=== PATIENT | female | born 1975 | race American Indian/Alaskan Native ===

== ENCOUNTER 2018-04-25 14:00 | Emergency (ER) | payer BC, OTHER ==
[2018-04-25 14:01] VITALS: BMI 31.5
[2018-04-25] MEDS ORDERED: Sodium Chloride 0.9% 500 ML IV ONE ×2 (14:40→18:10)
--- NOTE | 2018-04-25 15:00 | C.PDOC ---
History Of Present Illness 42 y/o female, , 5.5 weeks gestation, with PMHx of HTN, diabetes, PCOS, right side ovarian torsion, presents to ED for evaluation of abdominal cramping for the last few days. She reports being seen by her OBGYN in [place] and states her Beta-HCG is "not increasing as normal". Last Beta level was 106. Notes her OBGYN instructed her to report to ED for further evaluation. Otherwise , denies vaginal bleeding, vaginal discharge, or fever. Time Seen by Provider: 04/25/18 14:34 Chief Complaint (Nursing): Medical Clearance History Per: Patient History/Exam Limitations: no limitations Past Medical History Reviewed: Historical Data, Nursing Documentation, Vital Signs Vital Signs: Last Vital Signs Temp 99.0 F 04/25/18 18:15 Pulse 105 H 04/25/18 18:15 Resp 18 04/25/18 18:15 BP 129/86 04/25/18 18:15 Pulse Ox 98 04/25/18 18:15 - Medical History PMH: HTN, Sleep Apnea (On Cpap at HS) Denies: Chronic Kidney Disease Surgical History: Endoscopy - [facility] Procedures LAPAROSCOP LYSIS-PERITONEAL ADHES (06/23/14) LAPAROSCOPY (06/23/14) PARTIAL SALPINGECTOM NEC (06/23/14) Family History: States: Unknown Family Hx - Social History Hx Alcohol Use: Yes Hx Substance Use: No - Immunization History Hx Tetanus Toxoid Vaccination: No Hx Influenza Vaccination: No Hx Pneumococcal Vaccination: No Review Of Systems Except As Marked, All Systems Reviewed And Found Negative. Constitutional: Negative for: Fever, Chills Gastrointestinal: Positive for: Abdominal Pain. Negative for: Nausea, Vomiting , Diarrhea Genitourinary: Negative for: Dysuria, Hematuria, Vaginal Discharge, Vaginal Bleeding Musculoskeletal: Negative for: Back Pain Physical Exam - Physical Exam Appears: Non-toxic, No Acute Distress Skin: Normal Color, Warm, Dry Head: Atraumatic, Normacephalic Eye(s): bilateral: Normal Inspection Oral Mucosa: Moist Cardiovascular: Rhythm Regular Respiratory: Normal Breath Sounds, No Rales, No Rhonchi, No Wheezing Gastrointestinal/Abdominal: Soft, Tenderness (mild suprapubic), No Guarding, No Rebound Back: No CVA Tenderness Extremity: Normal ROM Neurological/Psych: Oriented x3, Normal Speech ED Course And Treatment - Laboratory Results Result Diagrams: 04/25/18 15:24 04/25/18 15:24 O2 Sat by Pulse Oximetry: 99 (RA) Pulse Ox Interpretation: Normal Medical Decision Making Medical Decision Making: ro ectopic vs miscarriage. Plan: Blood work Urinalysis Transvaginal ultrasound IV fluids Pt refused pain medications. case discussed wtih dr kaur, who eval case bedside methotrexate given. abd soft no ttp. vitals stable. pt notified to f/u with obgyn in 4 days or return to er for repeat beta in 4 days. return immediately with any worsening. Disposition - Disposition Disposition: HOME/ ROUTINE Disposition Time: 06:00 Condition: STABLE Additional Instructions: return to er in 4 days or follow up with your doctor for repeat beta hcg level. you must follow up . return immediately with worsening symptoms or concerns. Instructions: Ectopic Forms: [facility] (Chinese) - Clinical Impression Clinical Impression: Ectopic - Scribe Statement The provider has reviewed the documentation as recorded by the Scribe KP All medical record entries made by the Scribe were at my direction and personally dictated by me. I have reviewed the chart and agree that the record accurately reflects my personal performance of the history, physical exam, medical decision making, and the department course for this patient. I have also personally directed, reviewed, and agree with the discharge instructions and disposition.
[2018-04-25 15:31] LABS: BASO # 0.1 K/uL (0.0-0.2); EOS # 0.1 K/uL (0.0-0.7); EOS % 1.1 % (0.0-4.0); HEMOGLOBIN 13.3 g/dL (11.0-16.0); LYMPH # 2.3 K/uL (1.0-4.3); LYMPH % 28.7 % (20.0-40.0); MEAN CELL VOLUME 72.3 fL (81.0-99.0); MEAN CORPUSCULAR HEMOGLOBIN 23.2 pg (27.0-31.0); MEAN PLATELET VOLUME 8.5 fL (7.2-11.7); MONO # 0.5 K/uL (0.0-0.8); MONO % 6.8 % (0.0-10.0); NEUT # 4.9 K/uL (1.8-7.0); NEUT % 62.4 % (50.0-75.0); NRBC % 0.2 % (0.0-2.0); RBC 5.73 Mil/uL (3.80-5.20); WHITE BLOOD COUNT 7.9 K/uL (4.8-10.8)
[2018-04-25 15:40] LABS: PROTHROMBIN TIME 10.8 SECONDS (9.7-12.2)
[2018-04-25 15:49] LABS: ALB/GLOB RATIO 1.5 (1.0-2.1); ALBUMIN 4.2 g/dL (3.5-5.0); ALT/SGPT 16 U/L (9-52); AST/SGOT 16 U/L (14-36); BLOOD UREA NITROGEN 11 mg/dL (7-17); CALCIUM 9.8 mg/dl (8.6-10.4); GFR NON-AFRICAN AMERICAN > 60
--- NOTE | 2018-04-25 16:44 | US ---
Date of service: 04/25/2018 PROCEDURE: Pelvic ultrasound HISTORY: Abd pain and COMPARISON: No prior study available for comparison TECHNIQUE: Transabdominal/transvaginal sonographic evaluation of the pelvis performed. FINDINGS: The uterus is anteverted measuring approximately 7.8 x 4.6 x 6.0 cm. Endometrial stripe measures approximately 1.1 cm. . No evidence of intrauterine gestation. The right ovary measures 2.9 x 1.6 x 3.1 cm. Right ovary exhibits arterial flow. Left ovary measures 8.2 x 5.4 x 8.6 cm. There 2 left-sided cysts of the 1st measuring 4.4 x 3.9 x 3.9 cm and the 2nd measuring approximately 1 cm greatest dimension. There is an additional cystic-appearing structure that measures approximately 3.2 x 2.0 x 3.4 cm and also exhibits peripheral flow. . This should be considered an ectopic if there is a positive serum beta HCG until proven otherwise. Note these findings were discussed with doctor Rouse at approximately 4:30 p.m. with written down and read back verification. IMPRESSION: No evidence of intrauterine gestation. There is a somewhat cystic appearing structure that measures approximately 3.2 x 2.0 x 3.4 cm and exhibits a somewhat thicker on periphery that exhibits arterial flow. Of this should be considered ectopic if there is a positive serum beta HCG until proven otherwise. Note that these findings were discussed with referring emergency room attending physician as detailed above. The small amount of free fluid is present.
[2018-04-25 17:27] LABS: SQUAMOUS EPITHIAL 1 /hpf (0-5); URINE BACTERIA RARE (<OCC); URINE BILIRUBIN NEGATIVE (NEGATIVE); URINE BLOOD 1+ (NEGATIVE); URINE CLARITY Clear (Clear); URINE COLOR Yellow (YELLOW); URINE GLUCOSE (UA) NORMAL (Normal); URINE LEUKOCYTE ESTERASE TRACE Leu/uL (Negative); URINE PROTEIN NEGATIVE (NEGATIVE); URINE UROBILINOGEN NORMAL mg/dL (0.2-1.0)
[2018-04-25 17:30] LABS: HCG,QUALITATIVE URINE POSITIVE (NEGATIVE)
[2018-04-25] MEDS ORDERED: Methotrexate 50 mg/2 ml Inj IM ONE ×2 (18:02→18:15)
[2018-04-25 18:16] VITALS: BP 129/86; PULSE 105; RESP 18; TEMP 99
--- NOTE | 2018-04-25 19:11 | CP.PCM.CON ---
History of Present Illness - History of Present Illness History of Present Illness: 42 yo female G1, 5.5 weeks gestation. Presented to ER with c/o of mild pelvic pain intermittent and for the past few days. She reports being seen by her OBGYN in [place], where she used to live, and was told that her BHCG was not "increasing as normal" and she was instraucted to go to ER for further evaluation. Report mild vaginal bleeding and spotting but denies vaginal discharge or fever. Pt brought Bhcg reports from [place] and on 04/19 it was 81 and on 04/21, it was 106.7 Review of Systems - Reproductive: Female Reproductive:Female: As Per HPI (Hx of PCO's and infertility. Scheduled for IVF in June/2018) - Menstruation Menstruation: Normal Menses (Admits to regular menses for the past 2-3 years with normal flow) Past Patient History - Past Medical History & Family History Past Medical History?: Yes - Past Social History Smoking Status: Never Smoked Alcohol: Social Drugs: Denies Domestic Violence: Negative - CARDIAC Hx Hypertension: Yes - PULMONARY Hx Sleep Apnea: Yes (On Cpap at ) - NEUROLOGICAL Hx Neurological Disorder: No - HEENT Hx HEENT Problems: No - RENAL Hx Chronic Kidney Disease: No - ENDOCRINE/METABOLIC Hx Endocrine Disorders: Yes Hx Diabetes Mellitus Type 2: Yes - HEMATOLOGICAL/ONCOLOGICAL Hx Blood Disorders: No - INTEGUMENTARY Hx Dermatological Problems: No - MUSCULOSKELETAL/RHEUMATOLOGICAL Hx Musculoskeletal Disorders: No - GASTROINTESTINAL Hx Gastrointestinal Disorders: No - GENITOURINARY/GYNECOLOGICAL Hx Genitourinary Disorders: No - PSYCHIATRIC Hx Substance Use: No - SURGICAL HISTORY Hx Surgeries: Yes (Laparoscopic Right Salpingectomy and FREYA) Other/Comment: Torsion ovary; removed right folopian tube. [place] tooth - ANESTHESIA Hx Anesthesia: Yes Hx Anesthesia Reactions: No Hx Malignant Hyperthermia: No Meds Allergies/Adverse Reactions: Allergies Allergy/AdvReac Type Severity Reaction Status Date / Time No Known Allergies Allergy Verified 04/25/18 14:15 Physical Exam - GI/Abdominal Exam GI & Abdominal Exam: Soft, Tenderness (Non-tenderness, No masses) - Rectal Exam Rectal Exam: NORMAL INSPECTION - Exam Speculum exam: NORMAL SPECULUM EXAM Bimanual exam: NORMAL BIMANUAL EXAM (Unable to palpate adnexa secondary to patient's body habitus. No tenderness bilateral lower pelvis) Results - Vital Signs Recent Vital Signs: Last Vital Signs Temp 99.0 F 04/25/18 18:15 Pulse 105 H 04/25/18 18:15 Resp 18 04/25/18 18:15 BP 129/86 04/25/18 18:15 Pulse Ox 98 04/25/18 18:15 - Labs Result Diagrams: 04/25/18 15:24 04/25/18 15:24 Labs: Laboratory Results - last 24 hr 04/25/18 04/25/18 04/25/18 15:24 15:24 15:24 WBC 7.9 RBC 5.73 H Hgb 13.3 Hct 41.5 MCV 72.3 L MCH 23.2 L MCHC 32.0 L RDW 15.0 H Plt Count 203 MPV 8.5 Neut % (Auto) 62.4 Lymph % (Auto) 28.7 [place] % (Auto) 6.8 Eos % (Auto) 1.1 Baso % (Auto) 1.0 Neut # (Auto) 4.9 Lymph # (Auto) 2.3 [place] # (Auto) 0.5 Eos # (Auto) 0.1 Baso # (Auto) 0.1 PT 10.8 INR 1.0 APTT 32 Sodium 139 Potassium 4.2 Chloride 104 Carbon Dioxide 24 Anion Gap 16 BUN 11 Creatinine 0.8 Est GFR ( Amer) > 60 Est GFR (Non-Af Amer) > 60 Random Glucose 147 H Calcium 9.8 Total Bilirubin 0.2 AST 16 ALT 16 Alkaline Phosphatase 77 Total Protein 7.1 Albumin 4.2 Globulin 2.9 Albumin/Globulin Ratio 1.5 Beta HCG, Quant 79.48 Urine Color Urine Clarity Urine pH Ur Specific [place] Urine Protein Urine Glucose (UA) Urine Ketones Urine Blood Urine Nitrate Urine Bilirubin Urine Urobilinogen Ur Leukocyte Esterase Urine WBC (Auto) Urine RBC (Auto) Ur Squamous Epith Cells Urine Bacteria Urine HCG, Qual 04/25/18 17:17 WBC RBC Hgb Hct MCV MCH MCHC RDW Plt Count MPV Neut % (Auto) Lymph % (Auto) [place] % (Auto) Eos % (Auto) Baso % (Auto) Neut # (Auto) Lymph # (Auto) [place] # (Auto) Eos # (Auto) Baso # (Auto) PT INR APTT Sodium Potassium Chloride Carbon Dioxide Anion Gap BUN Creatinine Est GFR ( Amer) Est GFR (Non-Af Amer) Random Glucose Calcium Total Bilirubin AST ALT Alkaline Phosphatase Total Protein Albumin Globulin Albumin/Globulin Ratio Beta HCG, Quant Urine Color Yellow Urine Clarity Clear Urine pH 6.0 Ur Specific [place] 1.013 Urine Protein Negative Urine Glucose (UA) Normal Urine Ketones Negative Urine Blood 1+ H Urine Nitrate Negative Urine Bilirubin Negative Urine Urobilinogen Normal Ur Leukocyte Esterase Trace Urine WBC (Auto) 2 Urine RBC (Auto) 7 H Ur Squamous Epith Cells 1 Urine Bacteria Rare Urine HCG, Qual Positive - Imaging and Cardiology US - abdomen Status: Image reviewed by me (Uterus and Right ovary WNL. Endometrium 1.1 cms. 2 simple Left Ovarian cysts and a cystic appearing structure about 3.2x2.0x3.4 cms with thicker periphery that exibits arterial flow and suspicious for an ectopic . + small amount of free fluid present), Pending, Report reviewed by me Assessment & Plan - Assessment and Plan (Free Text) Assessment: Hx of PCO's and infertility Abnormally rising BHCG levels with mild pelvic pain. BHCG on 04/21 at her doctor' s was 106.7 and 79.48 today in ER No IUP per US Several Left Ovarian cysts that could be c/w her Hx of PCO's Smaller cystic structure within left ovary with findings c/w an ectopic Mild pelvic pain and benign pelvic exam Plan: 1. Findings of ectopic c/w a small structure that meets criteria to be treated with Methotrexate IM injection. Her Liver functions, Serum Creatinine and CBC all WNL's 2. Procedure, risks and possible complications fully discussed with the patient and her partner and both verbalized understanding and agreed with proposed Plan of Care. 3. T&S was ordered as well as the Methotrexate medication 50 mg/m2 BSA IM x 1. Pharmacy calculated a 90 mg IM dose for her. 4. Pt states that she has an appointment with Dr. Santana at the end of the month and advised to call Dr. Santana office and schedule a follow up appointment in 4 days and every 4 days to repeat the BHCG test until down to 0. If unable to do that, she will f/up with her OBGYN in [place] or lastly, may return to ER for f/up on her BHCG test. 5. Counseled to complete Pelvic Rest until ascertained that her BHCG is 0. Also advised to return to ER if severe pain or bleeding or any other concerns 6. May take Ibuprofen or Aleve as needed for pain or cramping and aware that may see a little more bleeding. - Date & Time Date: 04/25/18 Time: 18:00
[2018-04-25 21:09] VITALS: O2SAT 99
== END 2018-04-25 21:08 | disposition home or self-care (01) ==
LOC: C.ER 14:00
DX: O00.90 Unspecified ectopic pregnancy without intrauterine pregnancy (principal); Z3A.01 Less than 8 weeks gestation of pregnancy
CPT/HCPCS: 76830; 76856; 80053; 81001; 84702; 84703; 85025; 85610; 85730; 86850; 86900; 99284; J7040